=== PATIENT | male | born 1955 | race Caucasian/White ===

== ENCOUNTER 2023-08-09 05:04 | Emergency (ER) | payer MEDICARE, SELFPAY ==
[2023-08-09 05:11] VITALS: BP 145/71; PULSE 59; RESP 16; TEMP 36.6; O2SAT 97; BMI 21.6
--- NOTE | 2023-08-09 05:35 | ED_ITS ---
HPI - Back Pain/Injury General: Chief Complaint: Back Pain/Injury Stated Complaint: low back/Right leg pain Time Seen by Provider: 08/09/23 05:14 History of Present Illness: 67-year-old male patient with right-side d low back pain radiating to his right lateral thigh. It does not go down past the knee. He has no history of fever. He notes that he had significant back pain 3 days ago that seem to improve on its own to some degree, but it is migrated down his leg. No leg swelling on that side. No urinary or bowel symptoms. No numbness or tingling. No prior history of surgery. Associated symptoms: Deny abdominal pain, chills, dysuria, fever(s), hematuria or vomiting Review of Systems Const: Denies: fever(s) or chills ENMT: Denies: throat pain Card: Denies: chest pain Resp: Denies: dyspnea GI: Denies: abdominal pain or vomiting : Denies: flank pain, difficulty urinating, dysuria or hematuria Musc: Reports: back pain and extremity pain; Denies: extremity swelling Skin/Breast: Denies: rash Physical Exam Const: COMMON NORMALS: no acute distress GENERAL APPEARANCE: cooperative; not ill appearing and not frail appearing HENMT: COMMON NORMALS: normocephalic, atraumatic and Normal external nose present HEAD & SCALP: normocephalic and atraumatic FACE & SINUS: normal facial exam and face symmetric NOSE: Normal external nose present Eye: COMMON NORMALS: Equal, round and reactive pupils present and EOMs intact bilaterally PUPIL: Yes Equal, round and reactive pupils present Neck/C-Spine: GENERAL: Yes trachea midline Chest: CHEST: Yes Symmetrical chest wall rise Resp: COMMON NORMALS: normal respiratory effort, No retractions, No use of accessory muscles and clear to auscultation bilaterally AUSCULTATION: clear to auscultation bilaterally Cardio: COMMON NORMALS: regular rate and regular rhythm RATE: regular rate RHYTHM: regular rhythm GI: COMMON NORMALS: Normal to inspection, nondistended, normoactive bowel sounds present Back/Pelvis: OTHER: Examination of the lumbar spine reveals no midline tenderness. There is right- sided L5-S1 tenderness and right sided sacroiliac joint superior tenderness. No tenderness to the hip anteriorly or laterally. Logroll testing is negative. Straight leg raise testing is positive for radicular pain down to the knee on that side. It is negative on the left. No pain past the knee. Sensation is intact. Motor is normal. Extremity: COMMON NORMALS: no pedal edema Neuro: JOHNNY COMA SCALE: document GCS findings Kress coma scale eye opening: Spontaneous Johnny coma scale verbal response: Orientated Kress coma scale motor response: Obey commands Johnny coma scale total score: 15 SENSORY EXAM: Yes extremities (intact) Psych: COMMON NORMALS: speech normal SPEECH: Yes normal speech Skin: COMMON NORMALS: no rashes or lesions noted GENERAL SKIN EXAM: no rashes or lesions noted Course Vital Signs: Vital signs: Vital Signs Temperature 97.8 F 08/09/23 06:32 Pulse Rate 59 L 08/09/23 06:32 Respiratory Rate 16 08/09/23 06:32 Blood Pressure 145/71 08/09/23 06:32 Pulse Oximetry 97 08/09/23 06:32 Oxygen Delivery Me thod Room Air 08/09/23 05:11 MDM - Back Pain/Injury Medical Decision Making Pain improving after medication here. Lumbar x-ray shows degenerative changes. Patient has pain in the pattern of sciatic nerve pain. He will be placed on steroids, pain medication. Outpatient follow-up. Further imaging and/or physical therapy may be necessary. He is to return for any new or concerning symptoms. Labs Radiology Impressions Lumbar Spine X-Ray 08/09/23 05:36 IMPRESSION: Degenerative change. All radiology interpretation(s) finalized by discharge Discharge Plan Discharge Patient Disposition: Home Clinical Impression: Lumbar radiculopathy Condition: Stable Prescriptions: New hydrocodone-acetaminophen 5-325 mg tablet 1 tab PO Q8H PRN (Reason: pain) Qty: 7 0RF ketorolac 10 mg tablet 10 mg PO TID PRN (Reason: pain) Qty: 10 0RF Medrol (Shayne) 4 mg tablets,dose pack See Rx Instructions .ROUTE .COMPLEX Qty: 21 0RF Rx Instructions: orally per package directions Discharge Orders: Discharge ED (Routine); Ordered 08/09/23 Ordered By: Devante Cleveland Referrals: Rosa Davila FNP [Primary Care Provider] - Patient Instructions: Opioid Safety, Pain Management Activity Restrictions/Additional Instructions: Medications as directed. Make sure you finish the steroid pack as we discussed. Follow-up with your doctor this week. Return for fever or any other worsening or new symptoms despite treatment. Coding Level of Care Code ED [employer] for Meliton Dyer
--- NOTE | 2023-08-09 05:36 | XRR_ITS ---
PROCEDURE INFORMATION: Exam: XR Lumbosacral Spine Exam date and time: 08/09/2023 5:39 AM Age: 67 years old Clinical indication: Low back pain; Additional info: R sided lbp TECHNIQUE: Imaging protocol: Radiologic exam of the lumbosacral spine. Views: 2 or 3 views. COMPARISON: No relevant prior studies available. FINDINGS: Bones/joints: Degenerative change in the lumbar spine and sacroiliac joints. No acute bony injury or malalignment. Soft tissues: Unremarkable. Gastrointestinal tract: Prominent stool, suggesting constipation. XR/XR lumbar spine 2-3V* [id number] IMPRESSION: Degenerative change.
[2023-08-09] MEDS: ketorolac 60 mg/2 mL INJ IM (05:53)
[2023-08-09] MEDS: orphenadrine 30 mg/mL Inj 2 mL 60 MG IM (05:53)
[2023-08-09] MEDS: dexamethasone 4 mg Tablet 10 MG PO (05:53)
[2023-08-09] MEDS: oxyCODONE-APAP 5-325 mg Tablet 2 TAB PO (05:54)
[2023-08-09 06:32] VITALS: BP 145/71; PULSE 59; RESP 16; TEMP 36.6; O2SAT 97
== END 2023-08-09 06:33 | disposition home or self-care (01) ==
PROVIDERS: Emergency Provider Emergency Medicine; PCP Nurse Practitioner Family
DX: M54.16 Radiculopathy, lumbar region (principal)
CPT/HCPCS: 72100; 96372; 99284; J1885; J2360; J8540